=== PATIENT | female | born 1960 | race Caucasian/White ===

== ENCOUNTER 2019-12-17 17:18 | Inpatient (IN) | payer BC, OTHER ==
[2019-12-17] MEDS ORDERED: Sodium Chloride 0.9% 2.5 ML Syringe FLUSH PRN (17:40)
[2019-12-17] MEDS ORDERED: Sodium Chloride 0.9% 10 ML Syringe FLUSH PRN (17:40)
--- NOTE | 2019-12-17 17:44 | EDM.PDOC ---
<Vamsi Starks - Last Filed: 12/17/19 19:57> ED HPI GENERAL MEDICAL PROBLEM - General Chief Complaint: Skin Complaint Stated Complaint: ABCESS ON LEFT SIDE OF FACE Time Seen by Provider: 12/17/19 17:32 - History of Present Illness INITIAL COMMENTS - FREE TEXT/NARRATIVE: Signout received from Dr. Black at 7 PM. Patient seen and evaluated by me. Patient with significant redness and swelling to her left lateral jaw with induration. There is a small pustule identified at the angle of the mandible. Patient has no trismus, no change in voice, no stridor, no airway compromise. Patient reports that she identified swelling in that area several days ago and saw her doctor and started her on cefdinir. Patient reports that she is on day 3 of cefdinir with no improvement of the indurated area. Patient reports that she is actually felt that the area has gotten slightly bigger and more tender since the antibiotics were initiated. Patient has a slightly elevated WBC count. Patient's CT scan of her soft tissue neck reveals: 1. Inflammatory changes noted within the lower left parotid salivary gland. This continues slightly inferior to the left parotid gland. Low density is noted within the left parotid gland which does not represent actual abscess at this time but puts the patient at risk for future abscess. There is inflammatory thickening of the adjacent platysma muscle. Inflammatory change within the lower left parotid salivary gland which contains low-density areas. Inflammatory change can continues inferiorly causing thickening of the platysma muscle. Findings are most suggestive of parotiditis. Follow-up CT recommended in 4 weeks to make sure findings are resolving as patient is at risk for abscess development 2. Degenerative change within the spine. No additional abnormalities appreciated. Pustule to angle of mandible deroofed by 18-gauge needle and a small amount of purulent material was expressed. Culture obtained and sent for Gram stain and cultures. Blood cultures x2 obtained with lactic acid level. Patient started on normal saline x1 L. Patient will need to be started on broad-spectrum IV antibiotics for parotiditis as she has failed outpatient therapy. Patient be placed on vancomycin and Zosyn. Case has been discussed with Dr. Brownlee our hospitalist and he is agreed to assist this with inpatient level of care of this patient. - Related Data Allergies Allergy/AdvReac Type Severity Reaction Status Date / Time Latex, Natural Rubber Allergy Rash Verified 12/17/19 21:46 latex Allergy Rash Uncoded 12/17/19 21:46 Home Meds: Home Meds Cefdinir 1 cap PO BID 12/17/19 [History] Gabapentin [Neurontin] 600 mg PO BEDTIME 12/17/19 [History] Propranolol [Inderal] 40 mg PO BID 12/17/19 [History] Rosuvastatin [Crestor] 10 mg PO BEDTIME 12/17/19 [History] Departure - Departure Time of Disposition: 20:03 Disposition: Admitted As Inpatient 64 Condition: Good Clinical Impression: Parotiditis, Acute parotitis - Discharge Information <Riley Black - Last Filed: 12/18/19 19:16> ED HPI GENERAL MEDICAL PROBLEM - History of Present Illness INITIAL COMMENTS - FREE TEXT/NARRATIVE: The patient has a gradually progressive enlarging firm mass in the left side of the angle of her jaw outside of her oral cavity. The teeth are uninvolved the pharynx is uninvolved she has no trismus ptyalism or change in her voice. She has been on antibiotics for 2 days now since she saw about it. He continues to grow. It is now painful red and markedly enlarged. Day 3 of cefdinir History of present illness: [] Review of systems: As per history of present illness and below otherwise all systems reviewed and negative. Past medical history: As per history of present illness and as reviewed below otherwise noncontributory. Surgical history: As per history of present illness and as reviewed below otherwise noncontributo ry. Social history: No reported history of drug or alcohol abuse. Family history: As per history of present illness and as reviewed below otherwise noncontributory. Physical exam: Constitutional - well developed, well-nourished and in no acute distress HEENT -small size tender mass in the left face and neck starting at and below and inferior to the angle of the jaw. There is a small punctate area that appears that it may have drained some purulent material 1 time with the patient denies drainage. Otherwise normocephalic, no evidence of trauma - external nose and mouth normal - no mass in neck and no JVD - mucosae moist EYES - full EOM, PERRL, no icterus - no evidence of inflammation, injection, or drainage Respiratory - no respiratory distress, equal bilateral expansion, Musculoskeletal no gross deformity of long bones or joints - no tenderness, swelling or edema Neurologic - Alert and oriented times four - CN II-XII grossly intact - motor sensory and coordination symmetrically normal Psychiatric - appropriate mood and affect with normal thought content Hematologic - No petechiae or purpura - mucosa appropriate color and sclera not pale - normal nail bed color and refill Integument - no rash or evidence of trauma - normal turgor Diagnostics: [] Therapeutics: [] Impression: [] Plan: [] Definitive disposition and diagnosis as appropriate pending reevaluation and review of above. abscess to left jaw area Pain Score (Numeric/FACES): 3 Past Medical History Neurological History: Reports: Other (See Below) Other Neuro History: Benign Essential Tremors - Infectious Disease History Infectious Disease History: Reports: Chicken Pox, Mumps - Past Surgical History Female Surgical History: Reports: Section Social & Family History - Family History Family Medical History: Noncontributory - Tobacco Use Smoking Status *Q: Never Smoker - Recreational Drug Use Recreational Drug Use: No ED ROS GENERAL - Review of Systems Review Of Systems: Comprehensive ROS is negative, except as noted in HPI. ED EXAM, SKIN/RASH Exam: See Below Text/Narrative:: My physical exam is in the HPI Course - Vital Signs Text/Narrative:: At the end of my shift the patient had not completed her imaging. I was not sure whether she had an infection of a solid tumor or she had a soft tissue infection only. I turned the case over to Dr. Sommer for disposition. Last Recorded V/S: Last Vital Signs Temp 98.2 F 12/18/19 15:00 Pulse 68 12/18/19 15:00 Resp 16 12/18/19 15:00 BP 124/56 L 12/18/19 15:00 Pulse Ox 97 12/18/19 15:00 - Orders/Labs/Meds Orders: Active Orders 24 hr Category Date Time Status Patient Status [ADT] Routine ADT 12/17/19 20:06 Active Medication Orders Acetaminophen (Tylenol) 650 mg PO Q4H PRN PRN Reason: Pain (Mild 1-3)/fever Gabapentin (Neurontin) 600 mg PO BEDTIME [facility] Last Admin: 12/17/19 22:58 Dose: 600 mg Documented by: APOLEVA Piperacillin Sod/Tazobactam (Sod 3.375 gm/ Sodium Chloride) 50 mls @ 100 mls/hr IV Q6H [facility] Last Admin: 12/18/19 14:54 Dose: 100 mls/hr Documented by: Infusion: 12/18/19 08:48 Dose: 100 mls/hr Documented by: Admin: 12/18/19 08:18 Dose: 100 mls/hr Documented by: Infusion: 12/18/19 01:59 Dose: 100 mls/hr Documented by: Admin: 12/18/19 01:29 Dose: 100 mls/hr Documented by: BEBETO Vancomycin HCl 1.5 gm/ Premix 300 mls @ 300 mls/hr IV Q12H [facility] Last Admin: 12/18/19 09:04 Dose: 300 mls/hr Documented by: KRISTIAN Ibuprofen (Motrin) 400 mg PO Q6H PRN PRN Reason: Pain (mild 1-3) Oxycodone HCl (Oxycodone) 5 mg PO Q4H PRN PRN Reason: Pain (moderate 4-6) Pantoprazole Sodium (Protonix) 40 mg PO DAILY [facility] Last Admin: 12/18/19 11:28 Dose: 40 mg Documented by: GENIE Cosigned by: KRISTIAN Propranolol HCl (Inderal) 40 mg PO BID [facility] Last Admin: 12/18/19 08:19 Dose: 40 mg Documented by: KRISTIAN Rosuvastatin Calcium (Crestor) 10 mg PO BEDTIME [facility] Sodium Chloride (Saline Flush) 10 ml FLUSH ASDIRECTED PRN PRN Reason: Keep Vein Open Last Admin: 12/17/19 18:22 Dose: 10 ml Documented by: ULISES Sodium Chloride (Saline Flush) 2.5 ml FLUSH ASDIRECTED PRN PRN Reason: Keep Vein Open Last Admin: 12/17/19 18:22 Dose: 2.5 ml Documented by: ULISES Vancomycin HCl (Pharmacy To Dose - Vancomycin) 1 dose .XX ASDIRECTED [facility] Labs: Laboratory Tests 12/17/19 12/17/19 12/17/19 Range/Units 18:15 18:15 19:55 WBC 11.68 H (4.0-11.0) K/uL RBC 4.27 L (4.30-5.90) M/uL Hgb 12.1 (12.0-16.0) g/dL Hct 39.2 (36.0-46.0) % MCV 91.8 (80.0-98.0) fL MCH 28.3 (27.0-32.0) pg MCHC 30.9 L (31.0-37.0) g/dL RDW Std Deviation 52.2 (28.0-62.0) fl RDW Coeff of Gaurav 15 (11.0-15.0) % Plt Count 288 (150-400) K/uL MPV 9.00 (7.40-12.00) fL Neut % (Auto) 68.3 (48.0-80.0) % Lymph % (Auto) 23.6 (16.0-40.0) % [place] % (Auto) 6.3 (0.0-15.0) % Eos % (Auto) 1.6 (0.0-7.0) % Baso % (Auto) 0.2 (0.0-1.5) % Neut # (Auto) 8.0 H (1.4-5.7) K/uL Lymph # (Auto) 2.8 H (0.6-2.4) K/uL [place] # (Auto) 0.7 (0.0-0.8) K/uL Eos # (Auto) 0.2 (0.0-0.7) K/uL Baso # (Auto) 0.0 (0.0-0.1) K/uL Nucleated RBC % 0.0 /100WBC Nucleated RBCs # 0 K/uL Sodium 138 (136-145) mmol/L Potassium 3.9 (3.5-5.1) mmol/L Chloride 102 (98-107) mmol/L Carbon Dioxide 23.1 (21.0-32.0) mmol/L BUN 18 (7.0-18.0) mg/dL Creatinine 0.8 (0.6-1.0) mg/dL Est Cr Clr Drug Dosing 58.41 mL/min Estimated GFR (MDRD) > 60.0 ml/min Glucose 77 (74-106) mg/dL Calcium 8.4 L (8.5-10.1) mg/dL Total Bilirubin 0.3 (0.2-1.0) mg/dL AST 23 (15-37) IU/L ALT 32 (14-63) IU/L Alkaline Phosphatase 80 (46-116) U/L Total Protein 7.7 (6.4-8.2) g/dL Albumin 3.1 L (3.4-5.0) g/dL Globulin 4.6 H (2.6-4.0) g/dL Albumin/Globulin Ratio 0.7 L (0.9-1.6) COVID-19 (RACHEAL) NEGATIVE (NEGATIVE) Meds: Medications Generic Name Dose Route Start Last Admin Trade Name Freq PRN Reason Stop Dose Admin Acetaminophen 650 mg 12/17/19 22:38 Tylenol PO Q4H PRN Pain (Mild 1-3)/fever Gabapentin 600 mg 12/17/19 21:00 12/17/19 22:58 Neurontin PO 600 mg BEDTIME MEI Administration Piperacillin Sod/Tazobactam 50 mls @ 100 mls/hr 12/18/19 02:00 12/18/19 14:54 Sod 3.375 gm/ Sodium Chloride IV 100 mls/hr Q6H [facility] Administration Vancomycin HCl 1.5 gm/ Premix 300 mls @ 300 mls/hr 12/18/19 09:00 12/18/19 09:04 IV 300 mls/hr Q12H [facility] Administration Ibuprofen 400 mg 12/17/19 22:38 Motrin PO Q6H PRN Pain (mild 1-3) Oxycodone HCl 5 mg 12/17/19 22:38 Oxycodone PO Q4H PRN Pain (moderate 4-6) Pantoprazole Sodium 40 mg 12/18/19 11:00 12/18/19 11:28 Protonix PO 40 mg DAILY MEI Administration Propranolol HCl 40 mg 12/18/19 09:00 12/18/19 08:19 Inderal PO 40 mg BID MEI Administration Rosuvastatin Calcium 10 mg 12/18/19 21:00 Crestor PO BEDTIME MEI Sodium Chloride 10 ml 12/17/19 17:40 12/17/19 18:22 Saline Flush FLUSH 10 ml ASDIRECTED PRN Administration Keep Vein Open Sodium Chloride 2.5 ml 12/17/19 17:40 12/17/19 18:22 Saline Flush FLUSH 2.5 ml ASDIRECTED PRN Administration Keep Vein Open Vancomycin HCl 1 dose 12/17/19 22:45 Pharmacy To Dose - Vancomycin .XX ASDIRECTED MEI Discontinued Medications Generic Name Dose Route Start Last Admin Trade Name Freq PRN Reason Stop Dose Admin Vancomycin HCl 1.5 gm/ Premix 300 mls @ 300 mls/hr 12/17/19 19:50 12/17/19 21:49 IV 12/17/19 19:51 200 mls/hr ONETIME ONE Administration Piperacillin Sod/Tazobactam 50 mls @ 100 mls/hr 12/17/19 19:51 12/17/19 21:21 Sod 3.375 gm/ Sodium Chloride IV 12/17/19 20:20 100 mls/hr ONETIME ONE Administration Vancomycin HCl 1.5 gm/ Sodium 500 mls @ 333.333 mls/hr 12/18/19 05:00 Chloride IV Q12H MEI Iopamidol 80 ml 12/17/19 19:15 12/17/19 19:15 Isovue-370 (76%) IVPUSH 12/17/19 19:16 80 ml ONETIME STA Administration Sepsis Event Note (ED) - Evaluation Sepsis Screening Result: No Definite Risk
[2019-12-17 18:53] LABS: BLOOD UREA NITROGEN,BUN 18 mg/dL (7.0-18.0); CARBON DIOXIDE,CO2 23.1 mmol/L (21.0-32.0); CHLORIDE,CL 102 mmol/L (98-107); GLUCOSE RANDOM 77 mg/dL (74-106); POTASSIUM,K 3.9 mmol/L (3.5-5.1); SODIUM,NA 138 mmol/L (136-145)
[2019-12-17] MEDS ORDERED: Iopamidol 755 Mg/ML 100 ML Bottle IVPUSH STA (19:15)
--- NOTE | 2019-12-17 19:30 | CT ---
CT neck Technique: Multiple axial sections were obtained from above the external auditory canal inferiorly to the lung apices. Intravenous contrast was utilized. Reconstructed coronal and sagittal images were obtained. Findings: Inflammatory change is noted within the lower left parotid salivary gland. This continues slightly inferior to the left parotid gland. Low density is noted within the left parotid gland which does not represent actual abscess at this time but puts the patient at risk for future abscess. There is inflammatory thickening of the adjacent platysma muscle. Right parotid salivary gland is normal. Submandibular salivary glands are normal. Visualized lung apices are clear. Thyroid gland shows no discrete nodule. No adenopathy is seen within the neck. No prevertebral soft tissue swelling is noted. Degenerative change is scattered within the spine. Visualized paranasal sinuses show nothing acute. Impression: 1. Inflammatory change within the lower left parotid salivary gland which contains low density areas. Inflammatory change continues inferiorly causing thickening of the platysma muscle. Findings are most suggestive of parotiditis. Follow-up CT recommended in 4 weeks to make sure findings are resolving as patient is at risk for abscess development. 2. Degenerative change within the spine. 3. No additional abnormality is appreciated. Diagnostic code #5 This report was dictated in MDT
[2019-12-17] MEDS ORDERED: Piperacillin/Tazobactam 3.375 GM in Sodium Chloride 0.9% 50 ML IV ONE (19:51)
--- NOTE | 2019-12-17 22:35 | PCM.HP.2 ---
H&P History of Present Illness - General Date of Service: 12/17/19 Admit Problem/Dx: Admission Diagnosis/Problem Admission Diagnosis/Problem Parotitis - History of Present Illness Initial Comments - Free Text/Narative: 59 yo female who presents with enlarging mass on left angle of jaw. She was given Cefdiner two days ago for parotidis with no improvement. Patient has been taking ibuprofen and acetaminophen for the pain. She denies any fevers or chills. She has no difficulty swallowing. Patient reports no drainage. In the ED she had a CT scan of neck which suggested parotidis with no evidence of abscess. abscess to left jaw area Pain Score (Numeric/FACES): 3 - Related Data Allergies/Adverse Reactions: Allergies Allergy/AdvReac Type Severity Reaction Status Date / Time Latex, Natural Rubber Allergy Rash Verified 12/17/19 21:46 latex Allergy Rash Uncoded 12/17/19 21:46 Home Medications: Home Meds Cefdinir 1 cap PO BID 12/17/19 [History] Gabapentin [Neurontin] 600 mg PO BEDTIME 12/17/19 [History] Propranolol [Inderal] 40 mg PO BID 12/17/19 [History] Rosuvastatin [Crestor] 10 mg PO BEDTIME 12/17/19 [History] Past Medical History Cardiovascular History: Reports: High Cholesterol [employer] History: Reports: Musculoskeletal History: Reports: Other (See Below) Other Musculoskeletal History: benign essential tremors- taking gabapentin and Inderal Neurological History: Reports: Other (See Below) Other Neuro History: Benign Essential Tremors - Infectious Disease History Infectious Disease History: Reports: Chicken Pox, Mumps - Past Surgical History Cardiovascular Surgical History: Reports: None Female Surgical History: Reports: Section Social & Family History - Family History Family Medical History: Noncontributory - Tobacco Use Smoking Status *Q: Never Smoker Second Hand Smoke Exposure: No - Caffeine Use Caffeine Use: Reports: Tea - Recreational Drug Use Recreational Drug Use: No H&P Review of Systems - Review of Systems: Review Of Systems: Comprehensive ROS is negative, except as noted in HPI. Exam - Exam Exam: See Below - Vital Signs Vital Signs: Last Vital Signs Temp 36.5 C 12/17/19 17:26 Pulse 84 12/17/19 20:57 Resp 16 12/17/19 20:57 BP 150/67 H 12/17/19 20:57 Pulse Ox 97 12/17/19 20:57 Weight: 93.485 kg - Exam General: Alert, Oriented HEENT: Conjunctiva Clear, EACs Clear, EOMI, Mucosa Moist & [place], Posterior Pharynx Clear, Other (3-4 cm area of induration and erythema around the left jaw angle, no are of fluctuance or drainage) Neck: Supple Lungs: Clear to Auscultation, Normal Respiratory Effort Cardiovascular: Regular Rate, Regular Rhythm GI/Abdominal Exam: Normal Bowel Sounds, Soft, Non-Tender Extremities: Non-Tender, No Pedal Edema Skin: Warm, Dry, Intact Neurological: No: Focal Deficit - Patient Data Lab Results Last 24 hrs: Laboratory Results - last 24 hr 12/17/19 12/17/19 12/17/19 Range/Units 18:15 18:15 19:55 WBC 11.68 H (4.0-11.0) K/uL RBC 4.27 L (4.30-5.90) M/uL Hgb 12.1 (12.0-16.0) g/dL Hct 39.2 (36.0-46.0) % MCV 91.8 (80.0-98.0) fL MCH 28.3 (27.0-32.0) pg MCHC 30.9 L (31.0-37.0) g/dL RDW Std Deviation 52.2 (28.0-62.0) fl RDW Coeff of Gaurav 15 (11.0-15.0) % Plt Count 288 (150-400) K/uL MPV 9.00 (7.40-12.00) fL Neut % (Auto) 68.3 (48.0-80.0) % Lymph % (Auto) 23.6 (16.0-40.0) % [place] % (Auto) 6.3 (0.0-15.0) % Eos % (Auto) 1.6 (0.0-7.0) % Baso % (Auto) 0.2 (0.0-1.5) % Neut # (Auto) 8.0 H (1.4-5.7) K/uL Lymph # (Auto) 2.8 H (0.6-2.4) K/uL [place] # (Auto) 0.7 (0.0-0.8) K/uL Eos # (Auto) 0.2 (0.0-0.7) K/uL Baso # (Auto) 0.0 (0.0-0.1) K/uL Nucleated RBC % 0.0 /100WBC Nucleated RBCs # 0 K/uL Sodium 138 (136-145) mmol/L Potassium 3.9 (3.5-5.1) mmol/L Chloride 102 (98-107) mmol/L Carbon Dioxide 23.1 (21.0-32.0) mmol/L BUN 18 (7.0-18.0) mg/dL Creatinine 0.8 (0.6-1.0) mg/dL Est Cr Clr Drug Dosing 58.41 mL/min Estimated GFR (MDRD) > 60.0 ml/min Glucose 77 (74-106) mg/dL Calcium 8.4 L (8.5-10.1) mg/dL Total Bilirubin 0.3 (0.2-1.0) mg/dL AST 23 (15-37) IU/L ALT 32 (14-63) IU/L Alkaline Phosphatase 80 (46-116) U/L Total Protein 7.7 (6.4-8.2) g/dL Albumin 3.1 L (3.4-5.0) g/dL Globulin 4.6 H (2.6-4.0) g/dL Albumin/Globulin Ratio 0.7 L (0.9-1.6) COVID-19 (RACHEAL) NEGATIVE (NEGATIVE) Result Diagrams: 12/19/19 05:28 12/19/19 05:28 Sepsis Event Note - Evaluation Sepsis Screening Result: No Definite Risk - Focused Exam Vital Signs: Vital Signs Temp Pulse Resp BP Pulse Ox 12/17/19 20:57 84 16 150/67 H 97 12/17/19 17:26 36.5 C 74 20 96 Problem List Initiated/Reviewed/Updated: Yes Orders Last 24hrs: Active Orders 24 hr Category Date Time Status Patient Status [ADT] Routine ADT 12/17/19 20:06 Active CULTURE WOUND [RM] Routine Lab 12/17/19 20:00 Received Sodium Chloride 0.9% [Saline Flush] Med 12/17/19 17:40 Active 10 ml FLUSH ASDIRECTED PRN Sodium Chloride 0.9% [Saline Flush] Med 12/17/19 17:40 Active 2.5 ml FLUSH ASDIRECTED PRN Saline Lock Insert [OM.PC] Stat Oth 12/17/19 17:41 Ordered Medication Orders Sodium Chloride (Saline Flush) 10 ml FLUSH ASDIRECTED PRN PRN Reason: Keep Vein Open Last Admin: 12/17/19 18:22 Dose: 10 ml Documented by: [id number] Sodium Chloride (Saline Flush) 2.5 ml FLUSH ASDIRECTED PRN PRN Reason: Keep Vein Open Last Admin: 12/17/19 18:22 Dose: 2.5 ml Documented by: [id number] Assessment/Plan Comment:: 49 yo female admitted for parotiditis that failed outpatient management. Will treat with broad spectrum IV antibiotics.
[2019-12-17] MEDS ORDERED: oxyCODONE 5 MG Tab PO PRN (22:38)
[2019-12-17] MEDS ORDERED: Ibuprofen 400 MG Tab PO PRN (22:38)
[2019-12-17] MEDS ORDERED: Acetaminophen 325 MG Tab PO PRN (22:38)
[2019-12-17] MEDS: Gabapentin 300 MG Cap PO SCH (22:58)
[2019-12-18] MEDS: Piperacillin/Tazobactam 3.375 GM in Sodium Chloride 0.9% 50 ML IV SCH ×4 (01:29→20:36)
[2019-12-18] MEDS ORDERED: Vancomycin 1.5 GM in Sodium Chloride 0.9% 500 ML IV SCH (05:00)
[2019-12-18 05:25] LABS: BLOOD UREA NITROGEN,BUN 14 mg/dL (7.0-18.0); CHLORIDE,CL 104 mmol/L (98-107); GLUCOSE RANDOM 76 mg/dL (74-106); POTASSIUM,K 3.9 mmol/L (3.5-5.1); SODIUM,NA 139 mmol/L (136-145)
--- NOTE | 2019-12-18 08:00 | PCM.PN ---
- General Info Date of Service: 12/18/19 Subjective Update: Bedside: no acute complaints. Mentions pain only with palpation; otherwise no acute distress Functional Status: Reports: Pain Controlled - Review of Systems General: Reports: No Symptoms HEENT: Reports: No Symptoms Pulmonary: Reports: No Symptoms Cardiovascular: Reports: No Symptoms Gastrointestinal: Reports: No Symptoms Genitourinary: Reports: No Symptoms Musculoskeletal: Reports: No Symptoms Neurological: Reports: No Symptoms Psychiatric: Reports: No Symptoms - Patient Data Vitals - Most Recent: Last Vital Signs Temp 98.5 F 12/18/19 07:41 Pulse 84 12/18/19 07:41 Resp 20 12/18/19 07:41 BP 117/62 12/18/19 07:41 Pulse Ox 96 12/18/19 07:41 Weight - Most Recent: 93.485 kg I&O - Last 24 Hours: Intake & Output 12/17/19 12/18/19 12/18/19 22:59 06:59 14:59 Intake Total 50 600 Output Total 1050 Balance 50 -450 Lab Results Last 24 Hours: Laboratory Results - last 24 hr 12/17/19 12/17/19 12/17/19 Range/Units 18:15 18:15 19:55 WBC 11.68 H (4.0-11.0) K/uL RBC 4.27 L (4.30-5.90) M/uL Hgb 12.1 (12.0-16.0) g/dL Hct 39.2 (36.0-46.0) % MCV 91.8 (80.0-98.0) fL MCH 28.3 (27.0-32.0) pg MCHC 30.9 L (31.0-37.0) g/dL RDW Std Deviation 52.2 (28.0-62.0) fl RDW Coeff of Gaurav 15 (11.0-15.0) % Plt Count 288 (150-400) K/uL MPV 9.00 (7.40-12.00) fL Neut % (Auto) 68.3 (48.0-80.0) % Lymph % (Auto) 23.6 (16.0-40.0) % [place] % (Auto) 6.3 (0.0-15.0) % Eos % (Auto) 1.6 (0.0-7.0) % Baso % (Auto) 0.2 (0.0-1.5) % Neut # (Auto) 8.0 H (1.4-5.7) K/uL Lymph # (Auto) 2.8 H (0.6-2.4) K/uL [place] # (Auto) 0.7 (0.0-0.8) K/uL Eos # (Auto) 0.2 (0.0-0.7) K/uL Baso # (Auto) 0.0 (0.0-0.1) K/uL Nucleated RBC % 0.0 /100WBC Nucleated RBCs # 0 K/uL Sodium 138 (136-145) mmol/L Potassium 3.9 (3.5-5.1) mmol/L Chloride 102 (98-107) mmol/L Carbon Dioxide 23.1 (21.0-32.0) mmol/L BUN 18 (7.0-18.0) mg/dL Creatinine 0.8 (0.6-1.0) mg/dL Est Cr Clr Drug Dosing 58.41 mL/min Estimated GFR (MDRD) > 60.0 ml/min Glucose 77 (74-106) mg/dL Calcium 8.4 L (8.5-10.1) mg/dL Total Bilirubin 0.3 (0.2-1.0) mg/dL AST 23 (15-37) IU/L ALT 32 (14-63) IU/L Alkaline Phosphatase 80 (46-116) U/L Total Protein 7.7 (6.4-8.2) g/dL Albumin 3.1 L (3.4-5.0) g/dL Globulin 4.6 H (2.6-4.0) g/dL Albumin/Globulin Ratio 0.7 L (0.9-1.6) COVID-19 (RACHEAL) NEGATIVE (NEGATIVE) 12/18/19 12/18/19 Range/Units 04:55 04:55 WBC 8.51 (4.0-11.0) K/uL RBC 4.26 L (4.30-5.90) M/uL Hgb 12.2 (12.0-16.0) g/dL Hct 39.2 (36.0-46.0) % MCV 92.0 (80.0-98.0) fL MCH 28.6 (27.0-32.0) pg MCHC 31.1 (31.0-37.0) g/dL RDW Std Deviation 51.7 (28.0-62.0) fl RDW Coeff of Gaurav 15 (11.0-15.0) % Plt Count 263 (150-400) K/uL MPV 8.60 (7.40-12.00) fL Neut % (Auto) 63.5 (48.0-80.0) % Lymph % (Auto) 26.4 (16.0-40.0) % [place] % (Auto) 7.2 (0.0-15.0) % Eos % (Auto) 2.4 (0.0-7.0) % Baso % (Auto) 0.5 (0.0-1.5) % Neut # (Auto) 5.4 (1.4-5.7) K/uL Lymph # (Auto) 2.3 (0.6-2.4) K/uL [place] # (Auto) 0.6 (0.0-0.8) K/uL Eos # (Auto) 0.2 (0.0-0.7) K/uL Baso # (Auto) 0.0 (0.0-0.1) K/uL Nucleated RBC % 0.0 /100WBC Nucleated RBCs # 0 K/uL Sodium 139 (136-145) mmol/L Potassium 3.9 (3.5-5.1) mmol/L Chloride 104 (98-107) mmol/L Carbon Dioxide 22.0 (21.0-32.0) mmol/L BUN 14 (7.0-18.0) mg/dL Creatinine 0.7 (0.6-1.0) mg/dL Est Cr Clr Drug Dosing 66.75 mL/min Estimated GFR (MDRD) > 60.0 ml/min Glucose 76 (74-106) mg/dL Calcium 8.0 L (8.5-10.1) mg/dL Total Bilirubin (0.2-1.0) mg/dL AST (15-37) IU/L ALT (14-63) IU/L Alkaline Phosphatase (46-116) U/L Total Protein (6.4-8.2) g/dL Albumin (3.4-5.0) g/dL Globulin (2.6-4.0) g/dL Albumin/Globulin Ratio (0.9-1.6) COVID-19 (RACHEAL) (NEGATIVE) Kavon Results Last 24 Hours: Microbiology 12/17/19 20:00 Wound Culture - Preliminary Face - Cheek, Left Med Orders - Current: Current Medications Acetaminophen (Tylenol) 650 mg PO Q4H PRN PRN Reason: Pain (Mild 1-3)/fever Gabapentin (Neurontin) 600 mg PO BEDTIME [facility] Last Admin: 12/17/19 22:58 Dose: 600 mg Documented by: Piperacillin Sod/Tazobactam (Sod 3.375 gm/ Sodium Chloride) 50 mls @ 100 mls/hr IV Q6H [facility] Last Admin: 12/18/19 01:29 Dose: 100 mls/hr Documented by: Vancomycin HCl 1.5 gm/ Premix 300 mls @ 300 mls/hr IV Q12H [facility] Ibuprofen (Motrin) 400 mg PO Q6H PRN PRN Reason: Pain (mild 1-3) Oxycodone HCl (Oxycodone) 5 mg PO Q4H PRN PRN Reason: Pain (moderate 4-6) Propranolol HCl (Inderal) 40 mg PO BID [facility] Rosuvastatin Calcium (Crestor) 10 mg PO BEDTIME [facility] Sodium Chloride (Saline Flush) 10 ml FLUSH ASDIRECTED PRN PRN Reason: Keep Vein Open Last Admin: 12/17/19 18:22 Dose: 10 ml Documented by: Sodium Chloride (Saline Flush) 2.5 ml FLUSH ASDIRECTED PRN PRN Reason: Keep Vein Open Last Admin: 12/17/19 18:22 Dose: 2.5 ml Documented by: Vancomycin HCl (Pharmacy To Dose - Vancomycin) 1 dose .XX ASDIRECTED [facility] Discontinued Medications Vancomycin HCl 1.5 gm/ Premix 300 mls @ 300 mls/hr IV ONETIME ONE Stop: 12/17/19 19:51 Last Admin: 12/17/19 21:49 Dose: 200 mls/hr Documented by: Piperacillin Sod/Tazobactam (Sod 3.375 gm/ Sodium Chloride) 50 mls @ 100 mls/hr IV ONETIME ONE Stop: 12/17/19 20:20 Last Admin: 12/17/19 21:21 Dose: 100 mls/hr Documented by: Vancomycin HCl 1.5 gm/ Sodium (Chloride) 500 mls @ 333.333 mls/hr IV Q12H [facility] Iopamidol (Isovue-370 (76%)) 80 ml IVPUSH ONETIME STA Stop: 12/17/19 19:16 Last Admin: 12/17/19 19:15 Dose: 80 ml Documented by: - Exam Quality Assessment: No: Supplemental Oxygen General: Alert, Oriented, Cooperative, No Acute Distress HEENT: EOMI Neck: Supple, Other (tender mass/lesion noted over angle of ajw on left extending inferiorly just below angle of jaw, airway patent, CN intact, no trismus noted. no trgal tenderness. Some mild purulent discharge noted when removing band-aid; +tenderness; no fluctuance apprecaited ) Lungs: Clear to Auscultation, Normal Respiratory Effort Cardiovascular: Regular Rate, Regular Rhythm GI/Abdominal Exam: Soft, Non-Tender Back Exam: Normal Inspection Extremities: Normal Inspection, Normal Range of Motion Wound/Incisions: Healing Well Neurological: Normal Speech, Other (pre existing essential tremor ) Psy/Mental Status: Alert, Normal Affect, Normal Mood Sepsis Event Note - Evaluation Sepsis Screening Result: No Definite Risk - Focused Exam Vital Signs: Vital Signs Temp Pulse Resp BP BP Pulse Ox 12/18/19 07:41 98.5 F 84 20 117/62 96 12/18/19 04:00 98.4 F 87 18 125/59 L 95 12/18/19 00:00 99.3 F 81 18 129/61 95 12/17/19 21:35 99.1 F 83 20 141/69 H 97 12/17/19 20:57 84 16 150/67 H 97 - Problem List Review Problem List Initiated/Reviewed/Updated: Yes - Plan Plan:: Assessment: 1. L parotiditis that failed outpatient management. 2. PMH: essential tremor, HLD Plan Continue vancomycin and Zosyn. Will order a US to evaluate for any abscess formation Currently afebrile , airway patent, no CN deficits and in no acute distress/pain Continue to monitor for response to therapy; if abscess noted will need higher level of care pt understood plan. Wound cx pending
[2019-12-18] MEDS: Propranolol 20 MG Tab PO SCH ×2 (08:19→20:45)
[2019-12-18] MEDS: Pantoprazole 40 MG Tab.CR PO SCH (11:28)
--- NOTE | 2019-12-18 12:19 | US ---
Left parotid gland ultrasound: Multiple real-time images of the left parotid gland were obtained. Comparison: Prior CT neck study of 12/17/19. Hypoechoic areas of edema are noted within the left parotid gland. No drainable abscess is seen at this time. Left parotid gland is enlarged. Impression: 1. Findings as noted above. Diagnostic code #3 This report was dictated in MDT
[2019-12-18] MEDS: Rosuvastatin 10 MG Tab PO SCH (20:44)
[2019-12-18] MEDS: Gabapentin 300 MG Cap PO SCH (20:44)
[2019-12-19] MEDS: Piperacillin/Tazobactam 3.375 GM in Sodium Chloride 0.9% 50 ML IV SCH ×4 (01:00→20:42)
[2019-12-19] MEDS: Propranolol 20 MG Tab PO SCH ×2 (08:39→20:41)
[2019-12-19] MEDS: Pantoprazole 40 MG Tab.CR PO SCH (08:40)
--- NOTE | 2019-12-19 11:20 | PCM.PN ---
- General Info Date of Service: 12/19/19 - Review of Systems Systems Review Comment:: denies any fevers, reports mass on jaw feels like it has shrunk in size - Patient Data Vitals - Most Recent: Last Vital Signs Temp 37.0 C 12/19/19 07:25 Pulse 71 12/19/19 07:25 Resp 16 12/19/19 07:25 BP 133/61 12/19/19 07:25 Pulse Ox 95 12/19/19 07:25 Weight - Most Recent: 93.485 kg I&O - Last 24 Hours: Intake & Output 12/18/19 12/19/19 12/19/19 22:59 06:59 14:59 Intake Total 550 500 Output Total 850 1200 Balance -300 -700 Lab Results Last 24 Hours: Laboratory Results - last 24 hr 12/19/19 12/19/19 Range/Units 05:28 05:28 WBC 7.19 (4.0-11.0) K/uL RBC 3.97 L (4.30-5.90) M/uL Hgb 11.5 L (12.0-16.0) g/dL Hct 36.9 (36.0-46.0) % MCV 92.9 (80.0-98.0) fL MCH 29.0 (27.0-32.0) pg MCHC 31.2 (31.0-37.0) g/dL RDW Std Deviation 53.0 (28.0-62.0) fl RDW Coeff of Gaurav 16 H (11.0-15.0) % Plt Count 303 (150-400) K/uL MPV 8.80 (7.40-12.00) fL Neut % (Auto) 54.3 (48.0-80.0) % Lymph % (Auto) 34.2 (16.0-40.0) % [place] % (Auto) 8.1 (0.0-15.0) % Eos % (Auto) 3.1 (0.0-7.0) % Baso % (Auto) 0.3 (0.0-1.5) % Neut # (Auto) 3.9 (1.4-5.7) K/uL Lymph # (Auto) 2.5 H (0.6-2.4) K/uL [place] # (Auto) 0.6 (0.0-0.8) K/uL Eos # (Auto) 0.2 (0.0-0.7) K/uL Baso # (Auto) 0.0 (0.0-0.1) K/uL Nucleated RBC % 0.0 /100WBC Nucleated RBCs # 0 K/uL Sodium 141 (136-145) mmol/L Potassium 4.0 (3.5-5.1) mmol/L Chloride 107 (98-107) mmol/L Carbon Dioxide 23.0 (21.0-32.0) mmol/L BUN 17 (7.0-18.0) mg/dL Creatinine 1.0 (0.6-1.0) mg/dL Est Cr Clr Drug Dosing 46.72 mL/min Estimated GFR (MDRD) 56.4 ml/min Glucose 97 (74-106) mg/dL Calcium 8.4 L (8.5-10.1) mg/dL Kavon Results Last 24 Hours: Microbiology 12/17/19 20:00 Wound Culture - Preliminary Face - Cheek, Left NO GROWTH AFTER 1 DAY Med Orders - Current: Current Medications Acetaminophen (Tylenol) 650 mg PO Q4H PRN PRN Reason: Pain (Mild 1-3)/fever Gabapentin (Neurontin) 600 mg PO BEDTIME [facility] Last Admin: 12/18/19 20:44 Dose: 600 mg Documented by: Piperacillin Sod/Tazobactam (Sod 3.375 gm/ Sodium Chloride) 50 mls @ 100 mls/hr IV Q6H [facility] Last Admin: 12/19/19 08:39 Dose: 100 mls/hr Documented by: Vancomycin HCl 1.5 gm/ Premix 300 mls @ 300 mls/hr IV Q12H [facility] Last Admin: 12/18/19 21:15 Dose: 300 mls/hr Documented by: Ibuprofen (Motrin) 400 mg PO Q6H PRN PRN Reason: Pain (mild 1-3) Oxycodone HCl (Oxycodone) 5 mg PO Q4H PRN PRN Reason: Pain (moderate 4-6) Pantoprazole Sodium (Protonix) 40 mg PO DAILY [facility] Last Admin: 12/19/19 08:40 Dose: 40 mg Documented by: Propranolol HCl (Inderal) 40 mg PO BID [facility] Last Admin: 12/19/19 08:39 Dose: 40 mg Documented by: Rosuvastatin Calcium (Crestor) 10 mg PO BEDTIME [facility] Last Admin: 12/18/19 20:44 Dose: 10 mg Documented by: Sodium Chloride (Saline Flush) 10 ml FLUSH ASDIRECTED PRN PRN Reason: Keep Vein Open Last Admin: 12/17/19 18:22 Dose: 10 ml Documented by: Sodium Chloride (Saline Flush) 2.5 ml FLUSH ASDIRECTED PRN PRN Reason: Keep Vein Open Last Admin: 12/17/19 18:22 Dose: 2.5 ml Documented by: Vancomycin HCl (Pharmacy To Dose - Vancomycin) 1 dose .XX ASDIRECTED [facility] Discontinued Medications Vancomycin HCl 1.5 gm/ Premix 300 mls @ 300 mls/hr IV ONETIME ONE Stop: 12/17/19 19:51 Last Admin: 12/17/19 21:49 Dose: 200 mls/hr Documented by: Piperacillin Sod/Tazobactam (Sod 3.375 gm/ Sodium Chloride) 50 mls @ 100 mls/hr IV ONETIME ONE Stop: 12/17/19 20:20 Last Admin: 12/17/19 21:21 Dose: 100 mls/hr Documented by: Vancomycin HCl 1.5 gm/ Sodium (Chloride) 500 mls @ 333.333 mls/hr IV Q12H [facility] Iopamidol (Isovue-370 (76%)) 80 ml IVPUSH ONETIME STA Stop: 12/17/19 19:16 Last Admin: 12/17/19 19:15 Dose: 80 ml Documented by: - Exam General: Alert, Oriented Neck: Other (mild improvement in edema and induration of left jaw angle cellulitis, no purulent drainage noted, some weaping ofserousanginous fluid) Lungs: Clear to Auscultation, Normal Respiratory Effort Cardiovascular: Regular Rate, Regular Rhythm GI/Abdominal Exam: Soft, Non-Tender Extremities: Non-Tender, No Pedal Edema Neurological: No New Focal Deficit Sepsis Event Note - Evaluation Sepsis Screening Result: No Definite Risk - Focused Exam Vital Signs: Vital Signs Temp Pulse Resp BP Pulse Ox 12/19/19 07:25 37.0 C 71 16 133/61 95 12/19/19 05:00 36.7 C 63 20 111/43 L 94 L 12/19/19 00:00 36.6 C 69 18 100/63 95 - Problem List Review Problem List Initiated/Reviewed/Updated: Yes - My Orders Last 24 Hours: My Active Orders 12/18/19 21:00 Rosuvastatin [Crestor] 10 mg PO BEDTIME - Plan Plan:: 59 yo female admitted for failure of outpatient management of left parotiditis. We will continue Vancomycin and Zosyn.
[2019-12-19] MEDS: Gabapentin 300 MG Cap PO SCH (20:41)
[2019-12-19] MEDS: Rosuvastatin 10 MG Tab PO SCH (20:41)
[2019-12-20] MEDS: Piperacillin/Tazobactam 3.375 GM in Sodium Chloride 0.9% 50 ML IV SCH ×4 (02:41→20:38)
[2019-12-20 07:09] LABS: CARBON DIOXIDE,CO2 23.6 mmol/L (21.0-32.0)
[2019-12-20] MEDS: Pantoprazole 40 MG Tab.CR PO SCH (08:45)
[2019-12-20] MEDS: Propranolol 20 MG Tab PO SCH ×2 (08:45→20:38)
--- NOTE | 2019-12-20 11:17 | PCM.PN ---
- General Info Date of Service: 12/20/19 - Review of Systems Systems Review Comment:: patient feels left jaw cellulitis is improving. less firm and red - Patient Data Vitals - Most Recent: Last Vital Signs Temp 36.3 C 12/20/19 08:46 Pulse 65 12/20/19 08:46 Resp 15 12/20/19 08:46 BP 126/61 12/20/19 08:46 Pulse Ox 95 12/20/19 08:46 Weight - Most Recent: 93.485 kg I&O - Last 24 Hours: Intake & Output 12/19/19 12/20/19 12/20/19 22:59 06:59 14:59 Intake Total 50 850 Output Total 1050 Balance 50 -200 Lab Results Last 24 Hours: Laboratory Results - last 24 hr 12/19/19 12/20/19 12/20/19 Range/Units 20:38 06:00 06:00 WBC 8.33 (4.0-11.0) K/uL RBC 4.01 L (4.30-5.90) M/uL Hgb 11.6 L (12.0-16.0) g/dL Hct 37.3 (36.0-46.0) % MCV 93.0 (80.0-98.0) fL MCH 28.9 (27.0-32.0) pg MCHC 31.1 (31.0-37.0) g/dL RDW Std Deviation 49.7 (28.0-62.0) fl RDW Coeff of Gaurav 15 (11.0-15.0) % Plt Count 309 (150-400) K/uL MPV 8.80 (7.40-12.00) fL Neut % (Auto) 53.9 (48.0-80.0) % Lymph % (Auto) 35.9 (16.0-40.0) % [place] % (Auto) 6.8 (0.0-15.0) % Eos % (Auto) 3.0 (0.0-7.0) % Baso % (Auto) 0.4 (0.0-1.5) % Neut # (Auto) 4.5 (1.4-5.7) K/uL Lymph # (Auto) 3.0 H (0.6-2.4) K/uL [place] # (Auto) 0.6 (0.0-0.8) K/uL Eos # (Auto) 0.3 (0.0-0.7) K/uL Baso # (Auto) 0.0 (0.0-0.1) K/uL Sodium 141 (136-145) mmol/L Potassium 4.0 (3.5-5.1) mmol/L Chloride 107 (98-107) mmol/L Carbon Dioxide 23.6 (21.0-32.0) mmol/L BUN 17 (7.0-18.0) mg/dL Creatinine 1.0 (0.6-1.0) mg/dL Est Cr Clr Drug Dosing 46.72 mL/min Estimated GFR (MDRD) 56.4 ml/min Glucose 96 (74-106) mg/dL Calcium 8.6 (8.5-10.1) mg/dL Vancomycin Trough 26.3 H (5.0-10.0) ug/mL Kavon Results Last 24 Hours: Microbiology 12/17/19 20:00 Wound Culture - Preliminary Face - Cheek, Left NO GROWTH AFTER 1 DAY Med Orders - Current: Current Medications Acetaminophen (Tylenol) 650 mg PO Q4H PRN PRN Reason: Pain (Mild 1-3)/fever Gabapentin (Neurontin) 600 mg PO BEDTIME [facility] Last Admin: 12/19/19 20:41 Dose: 600 mg Documented by: Piperacillin Sod/Tazobactam (Sod 3.375 gm/ Sodium Chloride) 50 mls @ 100 mls/hr IV Q6H [facility] Last Admin: 12/20/19 08:41 Dose: 100 mls/hr Documented by: Vancomycin HCl 1.5 gm/ Premix 300 mls @ 300 mls/hr IV Q24H [facility] Last Admin: 12/20/19 06:00 Dose: 300 mls/hr Documented by: Ibuprofen (Motrin) 400 mg PO Q6H PRN PRN Reason: Pain (mild 1-3) Oxycodone HCl (Oxycodone) 5 mg PO Q4H PRN PRN Reason: Pain (moderate 4-6) Pantoprazole Sodium (Protonix) 40 mg PO DAILY [facility] Last Admin: 12/20/19 08:45 Dose: 40 mg Documented by: Propranolol HCl (Inderal) 40 mg PO BID [facility] Last Admin: 12/20/19 08:45 Dose: 40 mg Documented by: Rosuvastatin Calcium (Crestor) 10 mg PO BEDTIME [facility] Last Admin: 12/19/19 20:41 Dose: 10 mg Documented by: Sodium Chloride (Saline Flush) 10 ml FLUSH ASDIRECTED PRN PRN Reason: Keep Vein Open Last Admin: 12/17/19 18:22 Dose: 10 ml Documented by: Sodium Chloride (Saline Flush) 2.5 ml FLUSH ASDIRECTED PRN PRN Reason: Keep Vein Open Last Admin: 12/17/19 18:22 Dose: 2.5 ml Documented by: Vancomycin HCl (Pharmacy To Dose - Vancomycin) 1 dose .XX ASDIRECTED [facility] Discontinued Medications Vancomycin HCl 1.5 gm/ Premix 300 mls @ 300 mls/hr IV ONETIME ONE Stop: 12/17/19 19:51 Last Admin: 12/17/19 21:49 Dose: 200 mls/hr Documented by: Piperacillin Sod/Tazobactam (Sod 3.375 gm/ Sodium Chloride) 50 mls @ 100 mls/hr IV ONETIME ONE Stop: 12/17/19 20:20 Last Admin: 12/17/19 21:21 Dose: 100 mls/hr Documented by: Vancomycin HCl 1.5 gm/ Sodium (Chloride) 500 mls @ 333.333 mls/hr IV Q12H [facility] Vancomycin HCl 1.5 gm/ Premix 300 mls @ 300 mls/hr IV Q12H [facility] Last Admin: 12/19/19 22:12 Dose: Not Given Documented by: Iopamidol (Isovue-370 (76%)) 80 ml IVPUSH ONETIME STA Stop: 12/17/19 19:16 Last Admin: 12/17/19 19:15 Dose: 80 ml Documented by: - Exam General: Alert, Oriented HEENT: Other (induration and erythema of cellulitis and left jaw angle has improved, about 3-4 cm area of erythem and induration that is still swelling about 1cm in thickness) Neck: Supple Lungs: Clear to Auscultation, Normal Respiratory Effort Cardiovascular: Regular Rate, Regular Rhythm GI/Abdominal Exam: Soft, Non-Tender Sepsis Event Note - Evaluation Sepsis Screening Result: No Definite Risk - Focused Exam Vital Signs: Vital Signs Temp Pulse Resp BP Pulse Ox 12/20/19 08:46 36.3 C 65 15 126/61 95 12/20/19 02:43 36.6 C 66 16 93/40 L 96 - Problem List Review Problem List Initiated/Reviewed/Updated: Yes - My Orders Last 24 Hours: My Active Orders 12/20/19 07:00 VANCOmycin/Water for INJ (PEG) [VANCOmycin 1.5 GM/300 ML Premix] 1.5 gm Premix Bag 1 bag IV Q24H - Plan Plan:: 49 yo female admitted for parotiditis that failed outpatient management. We will continue Vancomycin and Zosyn.
[2019-12-20] MEDS: Gabapentin 300 MG Cap PO SCH (20:38)
[2019-12-20] MEDS: Rosuvastatin 10 MG Tab PO SCH (20:38)
[2019-12-21] MEDS: Piperacillin/Tazobactam 3.375 GM in Sodium Chloride 0.9% 50 ML IV SCH ×3 (02:47→14:47)
[2019-12-21 07:02] LABS: CARBON DIOXIDE,CO2 25.9 mmol/L (21.0-32.0); POTASSIUM,K 4.3 mmol/L (3.5-5.1)
[2019-12-21] MEDS: Propranolol 20 MG Tab PO SCH ×2 (08:02→21:02)
[2019-12-21] MEDS: Pantoprazole 40 MG Tab.CR PO SCH (08:02)
--- NOTE | 2019-12-21 11:33 | PCM.DCSUM1 ---
Discharge Summary - Discharge Data Discharge Date: 12/21/19 Discharge Disposition: Home, Self-Care 01 Condition: Good - Referral to Home Health Primary Care Physician: PCP None - Patient Instructions Diet: Heart Healthy Diet Notify Provider of: Fever, Increased Pain, Swelling and Redness, Nausea and/or Vomiting - Discharge Plan *PRESCRIPTION DRUG MONITORING PROGRAM REVIEWED*: No *COPY OF PRESCRIPTION DRUG MONITORING REPORT IN PATIENT RIMMA: No Prescriptions/Med Rec: Ciprofloxacin [Ciprofloxacin HCl] 500 mg PO BID 7 Days #14 tab clindamycin HCL [Clindamycin HCl] 150 mg PO TID 7 Days #63 capsule Home Medications: Home Meds Gabapentin [Neurontin] 600 mg PO BEDTIME 12/17/19 [History] Propranolol [Inderal] 40 mg PO BID 12/17/19 [History] Rosuvastatin [Crestor] 10 mg PO BEDTIME 12/17/19 [History] Acetaminophen [Tylenol] 650 mg PO Q4H PRN tablet 12/21/19 [Rx] Ciprofloxacin [Ciprofloxacin HCl] 500 mg PO BID 7 Days #14 tab 12/21/19 [Rx] clindamycin HCL [Clindamycin HCl] 150 mg PO TID 7 Days #63 capsule 12/21/19 [Rx] Patient Handouts: Parotitis, [id number] Referrals: Baldemar Can MD [Ordering Only Provider] - 12/31/19 8:00 am (Please arrive 15 minutes early with your identification, insurance card and your own facemask.) Poornima Norman MD [Resident] - 12/24/19 2:30 pm (Please arrive 15 minutes early with your insurance cards, identification, and your own facemask.) - Discharge Summary/Plan Comment DC Time >30 min.: No - Patient Data Vitals - Most Recent: Last Vital Signs Temp 97.5 F 12/21/19 07:41 Pulse 64 12/21/19 07:41 Resp 16 12/21/19 07:41 BP 129/68 12/21/19 07:41 Pulse Ox 97 12/21/19 07:41 Weight - Most Recent: 93.485 kg I&O - Last 24 hours: Intake & Output 12/20/19 12/21/19 12/21/19 22:59 06:59 14:59 Intake Total 950 450 350 Output Total 650 1300 Balance 300 -850 350 Lab Results - Last 24 hrs: Laboratory Results - last 24 hr 12/21/19 12/21/19 12/21/19 Range/Units 06:30 06:30 06:30 WBC 8.68 (4.0-11.0) K/uL RBC 4.11 L (4.30-5.90) M/uL Hgb 11.8 L (12.0-16.0) g/dL Hct 38.2 (36.0-46.0) % MCV 92.9 (80.0-98.0) fL MCH 28.7 (27.0-32.0) pg MCHC 30.9 L (31.0-37.0) g/dL RDW Std Deviation 49.8 (28.0-62.0) fl RDW Coeff of Gaurav 15 (11.0-15.0) % Plt Count 304 (150-400) K/uL MPV 8.50 (7.40-12.00) fL Neut % (Auto) 56.9 (48.0-80.0) % Lymph % (Auto) 33.3 (16.0-40.0) % [place] % (Auto) 6.7 (0.0-15.0) % Eos % (Auto) 2.8 (0.0-7.0) % Baso % (Auto) 0.3 (0.0-1.5) % Neut # (Auto) 4.9 (1.4-5.7) K/uL Lymph # (Auto) 2.9 H (0.6-2.4) K/uL [place] # (Auto) 0.6 (0.0-0.8) K/uL Eos # (Auto) 0.2 (0.0-0.7) K/uL Baso # (Auto) 0.0 (0.0-0.1) K/uL Sodium 142 (136-145) mmol/L Potassium 4.3 (3.5-5.1) mmol/L Chloride 107 (98-107) mmol/L Carbon Dioxide 25.9 (21.0-32.0) mmol/L BUN 17 (7.0-18.0) mg/dL Creatinine 1.0 (0.6-1.0) mg/dL Est Cr Clr Drug Dosing 46.72 mL/min Estimated GFR (MDRD) 56.4 ml/min Glucose 100 (74-106) mg/dL Calcium 8.9 (8.5-10.1) mg/dL Vancomycin Trough 9.7 (5.0-10.0) ug/mL KEVIN Results - Last 24 hrs: Microbiology 12/17/19 20:00 Wound Culture - Final Face - Cheek, Left Skin Negrita Med Orders - Current: Current Medications Acetaminophen (Tylenol) 650 mg PO Q4H PRN PRN Reason: Pain (Mild 1-3)/fever Gabapentin (Neurontin) 600 mg PO BEDTIME [facility] Last Admin: 12/20/19 20:38 Dose: 600 mg Documented by: Piperacillin Sod/Tazobactam (Sod 3.375 gm/ Sodium Chloride) 50 mls @ 100 mls/hr IV Q6H [facility] Last Admin: 12/21/19 09:09 Dose: 100 mls/hr Documented by: Vancomycin HCl 1.5 gm/ Premix 300 mls @ 300 mls/hr IV Q24H [facility] Last Admin: 12/21/19 07:57 Dose: 300 mls/hr Documented by: Ibuprofen (Motrin) 400 mg PO Q6H PRN PRN Reason: Pain (mild 1-3) Oxycodone HCl (Oxycodone) 5 mg PO Q4H PRN PRN Reason: Pain (moderate 4-6) Pantoprazole Sodium (Protonix) 40 mg PO DAILY [facility] Last Admin: 12/21/19 08:02 Dose: 40 mg Documented by: Propranolol HCl (Inderal) 40 mg PO BID [facility] Last Admin: 12/21/19 08:02 Dose: 40 mg Documented by: Rosuvastatin Calcium (Crestor) 10 mg PO BEDTIME [facility] Last Admin: 12/20/19 20:38 Dose: 10 mg Documented by: Sodium Chloride (Saline Flush) 10 ml FLUSH ASDIRECTED PRN PRN Reason: Keep Vein Open Last Admin: 12/17/19 18:22 Dose: 10 ml Documented by: Sodium Chloride (Saline Flush) 2.5 ml FLUSH ASDIRECTED PRN PRN Reason: Keep Vein Open Last Admin: 12/17/19 18:22 Dose: 2.5 ml Documented by: Vancomycin HCl (Pharmacy To Dose - Vancomycin) 1 dose .XX ASDIRECTED [facility] Discontinued Medications Vancomycin HCl 1.5 gm/ Premix 300 mls @ 300 mls/hr IV ONETIME ONE Stop: 12/17/19 19:51 Last Admin: 12/17/19 21:49 Dose: 200 mls/hr Documented by: Piperacillin Sod/Tazobactam (Sod 3.375 gm/ Sodium Chloride) 50 mls @ 100 mls/hr IV ONETIME ONE Stop: 12/17/19 20:20 Last Admin: 12/17/19 21:21 Dose: 100 mls/hr Documented by: Vancomycin HCl 1.5 gm/ Sodium (Chloride) 500 mls @ 333.333 mls/hr IV Q12H [facility] Vancomycin HCl 1.5 gm/ Premix 300 mls @ 300 mls/hr IV Q12H [facility] Last Admin: 12/19/19 22:12 Dose: Not Given Documented by: Iopamidol ([id number] (76%)) 80 ml IVPUSH ONETIME STA Stop: 12/17/19 19:16 Last Admin: 12/17/19 19:15 Dose: 80 ml Documented by:
--- NOTE | 2019-12-21 11:35 | US ---
Left neck ultrasound: Multiple real-time images were obtained of the left neck. Comparison: Previous ultrasound study of 12/18/19. Hypoechoic areas are identified within the left presumably parotid in location. Findings have the appearance of focal cellulitis. Findings are increasing in prominence from prior study. No definite abscess is seen although current findings with the patient at risk for development of abscess. Impression: 1. Findings felt compatible with worsening cellulitis from prior study. 2. Current findings with the patient at risk for abscess and continued close clinical follow-up is recommended. Diagnostic code #3 This report was dictated in MDT
[2019-12-21] MEDS ORDERED: Iopamidol 755 Mg/ML 100 ML Bottle IVPUSH STA (14:57)
--- NOTE | 2019-12-21 15:39 | CT ---
Indication: Left parotid abscess Technique: Contrast enhanced axial CT imaging through the neck. 75 mL Isovue 370 contrast agent was administered intravenously. Sagittal and coronal reconstructions are provided. Comparison: CT soft tissue neck with contrast 12/17/2019 Findings: There is an irregular thick-walled fluid collection in the superficial lobe of the left parotid gland which measures 2.7 x 2.3 x 2.6 cm, compatible with abscess. Associated parotid edema is decreased from prior. There is persistent adjacent subcutaneous fat stranding and thickening of the overlying skin as well as the adjacent platysma, consistent with cellulitis. The right parotid gland and both submandibular glands are normal. No significant lymphadenopathy is demonstrated in the neck. There is normal contour of the pharyngeal mucosa. There is no parapharyngeal or retropharyngeal edema. Streak artifact from dental amalgam partially limits visualization of the oral cavity. No abnormality is demonstrated in the visualized oral cavity, tongue, and floor of mouth. No abnormality seen with the vice president marketing & development spaces. The thyroid gland enhances homogeneously. The visualized paranasal sinuses and mastoid air cells are aerated. No significant abnormality is demonstrated within the visualized orbits and intracranial compartment. Atherosclerotic disease is noted of the left carotid bifurcation, without significant stenosis. The internal jugular veins are patent. The included lung apices are clear. Degenerative disc disease is noted in the cervical spine at C5-6 and C6-7 with mild spinal stenosis and bilateral neural foramina stenosis at both levels. Impression: 1. Interval development of an irregular thick-walled fluid collection in the inferior aspect of the superficial lobe of the left parotid gland measuring up to 2.7 cm, consistent with abscess. 2. Persistent but decreased inflammatory changes involving the left parotid gland consistent with parotitis. 3. Persistent adjacent subcutaneous fat stranding and thickening of the skin and platysma, consistent with cellulitis. Please note that all CT scans at this facility use dose modulation, iterative reconstruction, and/or weight-based dosing when appropriate to reduce radiation dose to as low as reasonably achievable. Dictated by Marlyn Pappas MD @ Dec 21 2019 3:09PM (Electronically Signed)
--- NOTE | 2019-12-21 18:11 | PCM.PN ---
- General Info Date of Service: 12/21/19 Subjective Update: Bedside: no acute complaints; mentions swelling is feeling better Functional Status: Reports: Pain Controlled - Review of Systems General: Reports: No Symptoms HEENT: Reports: No Symptoms Pulmonary: Reports: No Symptoms Cardiovascular: Reports: No Symptoms Gastrointestinal: Reports: No Symptoms Genitourinary: Reports: No Symptoms Musculoskeletal: Reports: No Symptoms Skin: Reports: No Symptoms Neurological: Reports: No Symptoms Psychiatric: Reports: No Symptoms - Patient Data Vitals - Most Recent: Last Vital Signs Temp 98.1 F 12/21/19 16:00 Pulse 68 12/21/19 16:00 Resp 18 12/21/19 16:00 BP 136/59 L 12/21/19 16:00 Pulse Ox 98 12/21/19 16:00 Weight - Most Recent: 93.485 kg I&O - Last 24 Hours: Intake & Output 12/21/19 12/21/19 12/21/19 06:59 14:59 22:59 Intake Total 450 350 690 Output Total 1300 900 Balance -850 350 -210 Lab Results Last 24 Hours: Laboratory Results - last 24 hr 12/21/19 12/21/19 12/21/19 Range/Units 06:30 06:30 06:30 WBC 8.68 (4.0-11.0) K/uL RBC 4.11 L (4.30-5.90) M/uL Hgb 11.8 L (12.0-16.0) g/dL Hct 38.2 (36.0-46.0) % MCV 92.9 (80.0-98.0) fL MCH 28.7 (27.0-32.0) pg MCHC 30.9 L (31.0-37.0) g/dL RDW Std Deviation 49.8 (28.0-62.0) fl RDW Coeff of Gaurav 15 (11.0-15.0) % Plt Count 304 (150-400) K/uL MPV 8.50 (7.40-12.00) fL Neut % (Auto) 56.9 (48.0-80.0) % Lymph % (Auto) 33.3 (16.0-40.0) % [place] % (Auto) 6.7 (0.0-15.0) % Eos % (Auto) 2.8 (0.0-7.0) % Baso % (Auto) 0.3 (0.0-1.5) % Neut # (Auto) 4.9 (1.4-5.7) K/uL Lymph # (Auto) 2.9 H (0.6-2.4) K/uL [place] # (Auto) 0.6 (0.0-0.8) K/uL Eos # (Auto) 0.2 (0.0-0.7) K/uL Baso # (Auto) 0.0 (0.0-0.1) K/uL Sodium 142 (136-145) mmol/L Potassium 4.3 (3.5-5.1) mmol/L Chloride 107 (98-107) mmol/L Carbon Dioxide 25.9 (21.0-32.0) mmol/L BUN 17 (7.0-18.0) mg/dL Creatinine 1.0 (0.6-1.0) mg/dL Est Cr Clr Drug Dosing 46.72 mL/min Estimated GFR (MDRD) 56.4 ml/min Glucose 100 (74-106) mg/dL Calcium 8.9 (8.5-10.1) mg/dL Vancomycin Trough 9.7 (5.0-10.0) ug/mL Med Orders - Current: Current Medications Acetaminophen (Tylenol) 650 mg PO Q4H PRN PRN Reason: Pain (Mild 1-3)/fever Dexamethasone (Dexamethasone) 10 mg IVPUSH Q8H [facility] Gabapentin (Neurontin) 600 mg PO BEDTIME [facility] Last Admin: 12/20/19 20:38 Dose: 600 mg Documented by: Ampicillin Sodium/Sulbactam (Sodium 3 gm/ Sodium Chloride) 100 mls @ 200 mls/hr IV Q6H [facility] Ibuprofen (Motrin) 400 mg PO Q6H PRN PRN Reason: Pain (mild 1-3) Oxycodone HCl (Oxycodone) 5 mg PO Q4H PRN PRN Reason: Pain (moderate 4-6) Pantoprazole Sodium (Protonix) 40 mg PO DAILY [facility] Last Admin: 12/21/19 08:02 Dose: 40 mg Documented by: Propranolol HCl (Inderal) 40 mg PO BID [facility] Last Admin: 12/21/19 08:02 Dose: 40 mg Documented by: Rosuvastatin Calcium (Crestor) 10 mg PO BEDTIME [facility] Last Admin: 12/20/19 20:38 Dose: 10 mg Documented by: Sodium Chloride (Saline Flush) 10 ml FLUSH ASDIRECTED PRN PRN Reason: Keep Vein Open Last Admin: 12/17/19 18:22 Dose: 10 ml Documented by: Sodium Chloride (Saline Flush) 2.5 ml FLUSH ASDIRECTED PRN PRN Reason: Keep Vein Open Last Admin: 12/17/19 18:22 Dose: 2.5 ml Documented by: Discontinued Medications Vancomycin HCl 1.5 gm/ Premix 300 mls @ 300 mls/hr IV ONETIME ONE Stop: 12/17/19 19:51 Last Admin: 12/17/19 21:49 Dose: 200 mls/hr Documented by: Piperacillin Sod/Tazobactam (Sod 3.375 gm/ Sodium Chloride) 50 mls @ 100 mls/hr IV ONETIME ONE Stop: 12/17/19 20:20 Last Admin: 12/17/19 21:21 Dose: 100 mls/hr Documented by: Piperacillin Sod/Tazobactam (Sod 3.375 gm/ Sodium Chloride) 50 mls @ 100 mls/hr IV Q6H [facility] Last Admin: 12/21/19 14:47 Dose: 100 mls/hr Documented by: Vancomycin HCl 1.5 gm/ Sodium (Chloride) 500 mls @ 333.333 mls/hr IV Q12H [facility] Vancomycin HCl 1.5 gm/ Premix 300 mls @ 300 mls/hr IV Q12H [facility] Last Admin: 12/19/19 22:12 Dose: Not Given Documented by: Vancomycin HCl 1.5 gm/ Premix 300 mls @ 300 mls/hr IV Q24H [facility] Last Admin: 12/21/19 07:57 Dose: 300 mls/hr Documented by: Iopamidol (Isovue-370 (76%)) 80 ml IVPUSH ONETIME STA Stop: 12/17/19 19:16 Last Admin: 12/17/19 19:15 Dose: 80 ml Documented by: Iopamidol (Isovue-370 (76%)) 75 ml IVPUSH ONETIME STA Stop: 12/21/19 14:58 Last Admin: 12/21/19 14:58 Dose: 75 ml Documented by: Vancomycin HCl (Pharmacy To Dose - Vancomycin) 1 dose .XX ASDIRECTED [facility] - Exam Quality Assessment: No: Supplemental Oxygen General: Alert, Oriented HEENT: EOMI, Other (left parotid gland induartion unchanged from yesterday; surrounding erythmea imprved ; no drainge noted this AM ) Neck: Supple Lungs: Clear to Auscultation Cardiovascular: Regular Rate, Regular Rhythm GI/Abdominal Exam: Soft, Non-Tender Extremities: Normal Inspection Wound/Incisions: Other (minimal drainge ) Neurological: No New Focal Deficit Psy/Mental Status: Alert, Normal Affect Sepsis Event Note - Evaluation Sepsis Screening Result: No Definite Risk - Focused Exam Vital Signs: Vital Signs Temp Pulse Resp BP Pulse Ox 12/21/19 16:00 98.1 F 68 18 136/59 L 98 12/21/19 12:00 97.9 F 57 L 16 131/50 L 97 12/21/19 07:41 97.5 F 64 16 129/68 97 - Problem List Review Problem List Initiated/Reviewed/Updated: Yes - My Orders Last 24 Hours: My Active Orders 12/21/19 18:15 Ampicillin/Sulbactam Na [Unasyn] 3 gm Sodium Chloride 0.9% [Normal Saline] 100 ml IV Q6H dexAMETHasone [Dexamethasone] 10 mg IVPUSH Q8H - Plan Plan:: 49 yo female admitted for parotiditis that failed outpatient management. Repeat U/S showed worsening cellulitis CT w. contrast suggested small abscess formation Discussed case with ENT of [facility]. mentioned risks benefits of drainage; recommended switching IV abx to Unasyn and adding on Decadron 10 mg q8hrs , holding for 24 hours and reassessing. Also spoke to ENT of [facility]; recommended similar actions; can drain if not responding w. IR intervention; since trauma to facial nerve is a risk factor Recommended adding on secretagogues as well
[2019-12-21] MEDS: Dexamethasone 10 MG/ML SDV IVPUSH SCH (18:28)
[2019-12-21] MEDS: Ampicillin/Sulbactam Na 3 GM in Sodium Chloride 0.9% 100 ML IV SCH (18:35)
[2019-12-21] MEDS: Rosuvastatin 10 MG Tab PO SCH (21:02)
[2019-12-21] MEDS: Gabapentin 300 MG Cap PO SCH (21:02)
[2019-12-22] MEDS: Ampicillin/Sulbactam Na 3 GM in Sodium Chloride 0.9% 100 ML IV SCH ×4 (00:11→18:06)
[2019-12-22] MEDS: Dexamethasone 10 MG/ML SDV IVPUSH SCH ×3 (02:58→18:06)
[2019-12-22] MEDS ORDERED: Sodium Chloride 0.9% 100 ML ONE (05:50)
[2019-12-22 05:59] LABS: BLOOD UREA NITROGEN,BUN 17 mg/dL (7.0-18.0); CARBON DIOXIDE,CO2 24.8 mmol/L (21.0-32.0); CHLORIDE,CL 106 mmol/L (98-107); GLUCOSE RANDOM 170 mg/dL (74-106); POTASSIUM,K 4.4 mmol/L (3.5-5.1); SODIUM,NA 140 mmol/L (136-145)
[2019-12-22] MEDS: Propranolol 20 MG Tab PO SCH ×2 (09:34→21:12)
[2019-12-22] MEDS: Pantoprazole 40 MG Tab.CR PO SCH (09:34)
--- NOTE | 2019-12-22 11:35 | PCM.PN ---
- General Info Date of Service: 12/22/19 Subjective Update: Bedside: denies any acute concerns; mentions possibly swelling improved but is not sure Functional Status: Reports: Pain Controlled - Review of Systems General: Reports: No Symptoms HEENT: Reports: No Symptoms Pulmonary: Reports: No Symptoms Cardiovascular: Reports: No Symptoms Gastrointestinal: Reports: No Symptoms Genitourinary: Reports: No Symptoms Musculoskeletal: Reports: No Symptoms Skin: Reports: No Symptoms Neurological: Reports: No Symptoms - Patient Data Vitals - Most Recent: Last Vital Signs Temp 97.3 F 12/22/19 07:10 Pulse 71 12/22/19 07:10 Resp 16 12/22/19 07:10 BP 130/47 L 12/22/19 07:10 Pulse Ox 96 12/22/19 07:10 Weight - Most Recent: 93.485 kg I&O - Last 24 Hours: Intake & Output 12/21/19 12/22/19 12/22/19 22:59 06:59 14:59 Intake Total 790 700 Output Total 900 950 Balance -110 -250 Lab Results Last 24 Hours: Laboratory Results - last 24 hr 12/22/19 12/22/19 Range/Units 05:03 05:03 WBC 12.20 H (4.0-11.0) K/uL RBC 4.41 (4.30-5.90) M/uL Hgb 12.4 (12.0-16.0) g/dL Hct 40.2 (36.0-46.0) % MCV 91.2 (80.0-98.0) fL MCH 28.1 (27.0-32.0) pg MCHC 30.8 L (31.0-37.0) g/dL RDW Std Deviation 49.9 (28.0-62.0) fl RDW Coeff of Gaurav 15 (11.0-15.0) % Plt Count 339 (150-400) K/uL MPV 8.60 (7.40-12.00) fL Neut % (Auto) 82.6 H (48.0-80.0) % Lymph % (Auto) 16.8 (16.0-40.0) % [place] % (Auto) 0.5 (0.0-15.0) % Eos % (Auto) 0.0 (0.0-7.0) % Baso % (Auto) 0.1 (0.0-1.5) % Neut # (Auto) 10.1 H (1.4-5.7) K/uL Lymph # (Auto) 2.1 (0.6-2.4) K/uL [place] # (Auto) 0.1 (0.0-0.8) K/uL Eos # (Auto) 0.0 (0.0-0.7) K/uL Baso # (Auto) 0.0 (0.0-0.1) K/uL Nucleated RBC % 0.0 /100WBC Nucleated RBCs # 0 K/uL Sodium 140 (136-145) mmol/L Potassium 4.4 (3.5-5.1) mmol/L Chloride 106 (98-107) mmol/L Carbon Dioxide 24.8 (21.0-32.0) mmol/L BUN 17 (7.0-18.0) mg/dL Creatinine 0.9 (0.6-1.0) mg/dL Est Cr Clr Drug Dosing 51.92 mL/min Estimated GFR (MDRD) > 60.0 ml/min Glucose 170 H (74-106) mg/dL Calcium 9.1 (8.5-10.1) mg/dL Total Bilirubin 0.2 (0.2-1.0) mg/dL AST 18 (15-37) IU/L ALT 34 (14-63) IU/L Alkaline Phosphatase 73 (46-116) U/L Total Protein 7.8 (6.4-8.2) g/dL Albumin 3.0 L (3.4-5.0) g/dL Globulin 4.8 H (2.6-4.0) g/dL Albumin/Globulin Ratio 0.6 L (0.9-1.6) Med Orders - Current: Current Medications Acetaminophen (Tylenol) 650 mg PO Q4H PRN PRN Reason: Pain (Mild 1-3)/fever Dexamethasone (Dexamethasone) 10 mg IVPUSH Q8H [facility] Last Admin: 12/22/19 09:35 Dose: 10 mg Documented by: Gabapentin (Neurontin) 600 mg PO BEDTIME [facility] Last Admin: 12/21/19 21:02 Dose: 600 mg Documented by: Ampicillin Sodium/Sulbactam (Sodium 3 gm/ Sodium Chloride) 100 mls @ 200 mls/hr IV Q6H [facility] Last Admin: 12/22/19 06:02 Dose: 200 mls/hr Documented by: Ibuprofen (Motrin) 400 mg PO Q6H PRN PRN Reason: Pain (mild 1-3) Oxycodone HCl (Oxycodone) 5 mg PO Q4H PRN PRN Reason: Pain (moderate 4-6) Pantoprazole Sodium (Protonix) 40 mg PO DAILY [facility] Last Admin: 12/22/19 09:34 Dose: 40 mg Documented by: Propranolol HCl (Inderal) 40 mg PO BID [facility] Last Admin: 12/22/19 09:34 Dose: 40 mg Documented by: Rosuvastatin Calcium (Crestor) 10 mg PO BEDTIME [facility] Last Admin: 12/21/19 21:02 Dose: 10 mg Documented by: Sodium Chloride (Saline Flush) 10 ml FLUSH ASDIRECTED PRN PRN Reason: Keep Vein Open Last Admin: 12/17/19 18:22 Dose: 10 ml Documented by: Sodium Chloride (Saline Flush) 2.5 ml FLUSH ASDIRECTED PRN PRN Reason: Keep Vein Open Last Admin: 12/17/19 18:22 Dose: 2.5 ml Documented by: Discontinued Medications Vancomycin HCl 1.5 gm/ Premix 300 mls @ 300 mls/hr IV ONETIME ONE Stop: 12/17/19 19:51 Last Admin: 12/17/19 21:49 Dose: 200 mls/hr Documented by: Piperacillin Sod/Tazobactam (Sod 3.375 gm/ Sodium Chloride) 50 mls @ 100 mls/hr IV ONETIME ONE Stop: 12/17/19 20:20 Last Admin: 12/17/19 21:21 Dose: 100 mls/hr Documented by: Piperacillin Sod/Tazobactam (Sod 3.375 gm/ Sodium Chloride) 50 mls @ 100 mls/hr IV Q6H [facility] Last Admin: 12/21/19 14:47 Dose: 100 mls/hr Documented by: Vancomycin HCl 1.5 gm/ Sodium (Chloride) 500 mls @ 333.333 mls/hr IV Q12H [facility] Vancomycin HCl 1.5 gm/ Premix 300 mls @ 300 mls/hr IV Q12H [facility] Last Admin: 12/19/19 22:12 Dose: Not Given Documented by: Vancomycin HCl 1.5 gm/ Premix 300 mls @ 300 mls/hr IV Q24H [facility] Last Admin: 12/21/19 07:57 Dose: 300 mls/hr Documented by: Sodium Chloride (Normal Saline) Confirm Administered Dose 100 mls @ as directed .ROUTE .STK-MED ONE Stop: 12/22/19 05:51 Last Admin: 12/22/19 06:18 Dose: Not Given Documented by: Iopamidol (Isovue-370 (76%)) 80 ml IVPUSH ONETIME STA Stop: 12/17/19 19:16 Last Admin: 12/17/19 19:15 Dose: 80 ml Documented by: Iopamidol (Isovue-370 (76%)) 75 ml IVPUSH ONETIME STA Stop: 12/21/19 14:58 Last Admin: 12/21/19 14:58 Dose: 75 ml Documented by: Vancomycin HCl (Pharmacy To Dose - Vancomycin) 1 dose .XX ASDIRECTED [facility] - Exam Quality Assessment: No: Supplemental Oxygen General: Alert, Oriented, Cooperative, No Acute Distress HEENT: EOMI, Other (left parotid gland swelling: minimal reduction in induration and erythema compared to yesterday ) Neck: Supple Lungs: Clear to Auscultation, Normal Respiratory Effort Cardiovascular: Regular Rate, Regular Rhythm GI/Abdominal Exam: Soft Neurological: No New Focal Deficit Psy/Mental Status: Alert, Normal Affect, Normal Mood Sepsis Event Note - Evaluation Sepsis Screening Result: No Definite Risk - Focused Exam Vital Signs: Vital Signs Temp Pulse Resp BP Pulse Ox 12/22/19 07:10 97.3 F 71 16 130/47 L 96 12/22/19 03:02 97.0 F 72 16 120/58 L 92 L 12/22/19 00:07 97.5 F 78 17 111/54 L 97 - Problem List Review Problem List Initiated/Reviewed/Updated: Yes - My Orders Last 24 Hours: My Active Orders 12/21/19 18:00 dexAMETHasone [Dexamethasone] 10 mg IVPUSH Q8H 12/21/19 19:00 Ampicillin/Sulbactam Na [Unasyn] 3 gm Sodium Chloride 0.9% [Normal Saline] 100 ml IV Q6H 12/23/19 05:11 CBC WITH AUTO DIFF [HEME] AM COMPREHENSIVE METABOLIC PN,CMP [CHEM] AM 12/24/19 05:11 CBC WITH AUTO DIFF [HEME] AM COMPREHENSIVE METABOLIC PN,CMP [CHEM] AM - Plan Plan:: 49 yo female admitted for parotiditis that failed outpatient management. Repeat U/S showed worsening cellulitis CT w. contrast suggested small abscess formation Discussed case with ENT of [place]. mentioned risks benefits of drainage; recommended switching IV abx to Unasyn and adding on Decadron 10 mg q8hrs , holding for 24 hours and reassessing. Also spoke to ENT of [facility]; recommended similar actions; can drain if not responding w. IR intervention; since trauma to facial nerve is a risk factor Recommended adding on secretagogues as well Discussed option of transfer to [facility] for IR/ENT Referral; pt states she will try another day of IV Unasyn+ Decadron and see if resolution can be achieved; pt irais lstill need an ENT consult and an appointment will be made
[2019-12-22] MEDS: Rosuvastatin 10 MG Tab PO SCH (21:12)
[2019-12-22] MEDS: Gabapentin 300 MG Cap PO SCH (21:12)
[2019-12-23] MEDS: Dexamethasone 10 MG/ML SDV IVPUSH SCH ×2 (01:07→09:38)
[2019-12-23] MEDS: Ampicillin/Sulbactam Na 3 GM in Sodium Chloride 0.9% 100 ML IV SCH ×2 (01:10→06:10)
[2019-12-23 05:49] LABS: CARBON DIOXIDE,CO2 24.6 mmol/L (21.0-32.0); POTASSIUM,K 4.2 mmol/L (3.5-5.1)
--- NOTE | 2019-12-23 09:33 | PCM.DCSUM1 ---
Discharge Summary - Hospital Course Free Text/Narrative:: 59 yo female who presents with enlarging mass on left angle of jaw. She was given Cefdiner two days prior to admission for parotidis with no improvement. Patient has been taking ibuprofen and acetaminophen for the pain. She denies any fevers or chills. She has no difficulty swallowing. Patient reports no drainage. In the ED she had a CT scan of neck which suggested parotidis with no evidence of abscess. Hospital course: pt .was started on Vancomycin and ZOsyn; repeat U/S did show some a small abscess formation of 2x2x2 cm. Spoke to ENT of [facility] and [facility]; recommended switch abx. to Unasyn and add Decadron as well. Otherwise pt. developed serial improvements of both induration and erythema but concerns about abscess needing drainage was discussed with patient. Since stable, afebrile, and WBC count elevation only occurred with initiation of Decadron, outpatient follow up appointment was established day of discharge with ENT of [facility] [place]. Sent home , as recommended by ENT, with Augmentin and prednisone. pt .stable and plan was discussed; had initially defrred transfer day before but was keen on follow up with ENT (sent to [facility] of interventional radiology availability) pt agreed to plan and requested discharge. Discharged home in stable condition. - Discharge Data Discharge Date: 12/23/19 Discharge Disposition: Home, Self-Care 01 Condition: Good - Referral to Home Health Primary Care Physician: PCP None - Patient Instructions Diet: Heart Healthy Diet Notify Provider of: Fever, Increased Pain, Swelling and Redness, Nausea and/or Vomiting Other/Special Instructions: Take the Augmentin and Prednisone. Follow up with your ENT in [place] 2 pm today at [facility] - Discharge Plan *PRESCRIPTION DRUG MONITORING PROGRAM REVIEWED*: No *COPY OF PRESCRIPTION DRUG MONITORING REPORT IN PATIENT RIMMA: No Prescriptions/Med Rec: Amoxicillin/Clavulanate K [Augmentin 875-125 MG] 1 tab PO BID 7 Days #14 tablet predniSONE [Prednisone] 40 mg PO DAILY 5 Days #10 tablet Home Medications: Home Meds Gabapentin [Neurontin] 600 mg PO BEDTIME 12/17/19 [History] Propranolol [Inderal] 40 mg PO BID 12/17/19 [History] Rosuvastatin [Crestor] 10 mg PO BEDTIME 12/17/19 [History] Acetaminophen [Tylenol] 650 mg PO Q4H PRN tablet 12/21/19 [Rx] Amoxicillin/Clavulanate K [Augmentin 875-125 MG] 1 tab PO BID 7 Days #14 tablet 12/23/19 [Rx] predniSONE [Prednisone] 40 mg PO DAILY 5 Days #10 tablet 12/23/19 [Rx] Patient Handouts: Parotitis, [id number], Clindamycin capsules, Ciprofloxacin tablets Referrals: Baldemar Can MD [Ordering Only Provider] - 12/31/19 8:00 am (Please arrive 15 minutes early with your identification, insurance card and your own facemask.) Poornima Norman MD [Resident] - 12/24/19 2:30 pm (Please arrive 15 minutes early with your insurance cards, identification, and your own facemask.) - Discharge Summary/Plan Comment DC Time >30 min.: No - Patient Data Vitals - Most Recent: Last Vital Signs Temp 98 F 12/23/19 07:00 Pulse 61 12/23/19 07:00 Resp 14 12/23/19 07:00 BP 128/57 L 12/23/19 07:00 Pulse Ox 96 12/23/19 07:00 Weight - Most Recent: 93.485 kg I&O - Last 24 hours: Intake & Output 12/22/19 12/23/19 12/23/19 22:59 06:59 14:59 Intake Total 800 680 Output Total 550 850 Balance 250 -170 Lab Results - Last 24 hrs: Laboratory Results - last 24 hr 12/23/19 12/23/19 Range/Units 05:07 05:07 WBC 24.47 H (4.0-11.0) K/uL RBC 4.21 L (4.30-5.90) M/uL Hgb 11.9 L (12.0-16.0) g/dL Hct 38.5 (36.0-46.0) % MCV 91.4 (80.0-98.0) fL MCH 28.3 (27.0-32.0) pg MCHC 30.9 L (31.0-37.0) g/dL RDW Std Deviation 50.2 (28.0-62.0) fl RDW Coeff of Gaurav 15 (11.0-15.0) % Plt Count 349 (150-400) K/uL MPV 8.80 (7.40-12.00) fL Neut % (Auto) 88.3 H (48.0-80.0) % Lymph % (Auto) 10.0 L (16.0-40.0) % [place] % (Auto) 1.7 (0.0-15.0) % Eos % (Auto) 0.0 (0.0-7.0) % Baso % (Auto) 0.0 (0.0-1.5) % Neut # (Auto) 21.6 H (1.4-5.7) K/uL Lymph # (Auto) 2.4 (0.6-2.4) K/uL [place] # (Auto) 0.4 (0.0-0.8) K/uL Eos # (Auto) 0.0 (0.0-0.7) K/uL Baso # (Auto) 0.0 (0.0-0.1) K/uL Nucleated RBC % 0.0 /100WBC Nucleated RBCs # 0 K/uL Sodium 142 (136-145) mmol/L Potassium 4.2 (3.5-5.1) mmol/L Chloride 106 (98-107) mmol/L Carbon Dioxide 24.6 (21.0-32.0) mmol/L BUN 26 H (7.0-18.0) mg/dL Creatinine 1.0 (0.6-1.0) mg/dL Est Cr Clr Drug Dosing 46.72 mL/min Estimated GFR (MDRD) 56.4 ml/min Glucose 174 H (74-106) mg/dL Calcium 8.6 (8.5-10.1) mg/dL Total Bilirubin 0.1 L (0.2-1.0) mg/dL AST 16 (15-37) IU/L ALT 30 (14-63) IU/L Alkaline Phosphatase 65 (46-116) U/L Total Protein 7.0 (6.4-8.2) g/dL Albumin 2.8 L (3.4-5.0) g/dL Globulin 4.2 H (2.6-4.0) g/dL Albumin/Globulin Ratio 0.7 L (0.9-1.6) Med Orders - Current: Current Medications Acetaminophen (Tylenol) 650 mg PO Q4H PRN PRN Reason: Pain (Mild 1-3)/fever Dexamethasone (Dexamethasone) 10 mg IVPUSH Q8H [facility] Last Admin: 12/23/19 01:07 Dose: 10 mg Documented by: Gabapentin (Neurontin) 600 mg PO BEDTIME [facility] Last Admin: 12/22/19 21:12 Dose: 600 mg Documented by: Ampicillin Sodium/Sulbactam (Sodium 3 gm/ Sodium Chloride) 100 mls @ 200 mls/hr IV Q6H [facility] Last Admin: 12/23/19 06:10 Dose: 200 mls/hr Documented by: Ibuprofen (Motrin) 400 mg PO Q6H PRN PRN Reason: Pain (mild 1-3) Oxycodone HCl (Oxycodone) 5 mg PO Q4H PRN PRN Reason: Pain (moderate 4-6) Pantoprazole Sodium (Protonix) 40 mg PO DAILY [facility] Last Admin: 12/22/19 09:34 Dose: 40 mg Documented by: Propranolol HCl (Inderal) 40 mg PO BID [facility] Last Admin: 12/22/19 21:12 Dose: 40 mg Documented by: Rosuvastatin Calcium (Crestor) 10 mg PO BEDTIME [facility] Last Admin: 12/22/19 21:12 Dose: 10 mg Documented by: Sodium Chloride (Saline Flush) 10 ml FLUSH ASDIRECTED PRN PRN Reason: Keep Vein Open Last Admin: 12/17/19 18:22 Dose: 10 ml Documented by: Sodium Chloride (Saline Flush) 2.5 ml FLUSH ASDIRECTED PRN PRN Reason: Keep Vein Open Last Admin: 12/17/19 18:22 Dose: 2.5 ml Documented by: Discontinued Medications Vancomycin HCl 1.5 gm/ Premix 300 mls @ 300 mls/hr IV ONETIME ONE Stop: 12/17/19 19:51 Last Admin: 12/17/19 21:49 Dose: 200 mls/hr Documented by: Piperacillin Sod/Tazobactam (Sod 3.375 gm/ Sodium Chloride) 50 mls @ 100 mls/hr IV ONETIME ONE Stop: 12/17/19 20:20 Last Admin: 12/17/19 21:21 Dose: 100 mls/hr Documented by: Piperacillin Sod/Tazobactam (Sod 3.375 gm/ Sodium Chloride) 50 mls @ 100 mls/hr IV Q6H [facility] Last Admin: 12/21/19 14:47 Dose: 100 mls/hr Documented by: Vancomycin HCl 1.5 gm/ Sodium (Chloride) 500 mls @ 333.333 mls/hr IV Q12H [facility] Vancomycin HCl 1.5 gm/ Premix 300 mls @ 300 mls/hr IV Q12H [facility] Last Admin: 12/19/19 22:12 Dose: Not Given Documented by: Vancomycin HCl 1.5 gm/ Premix 300 mls @ 300 mls/hr IV Q24H [facility] Last Admin: 12/21/19 07:57 Dose: 300 mls/hr Documented by: Sodium Chloride (Normal Saline) Confirm Administered Dose 100 mls @ as directed .ROUTE .STK-MED ONE Stop: 12/22/19 05:51 Last Admin: 12/22/19 06:18 Dose: Not Given Documented by: Iopamidol (Isovue-[id number] (76%)) 80 ml IVPUSH ONETIME STA Stop: 12/17/19 19:16 Last Admin: 12/17/19 19:15 Dose: 80 ml Documented by: Iopamidol (Isovue-[id number] (76%)) 75 ml IVPUSH ONETIME STA Stop: 12/21/19 14:58 Last Admin: 12/21/19 14:58 Dose: 75 ml Documented by: Vancomycin HCl (Pharmacy To Dose - Vancomycin) 1 dose .XX ASDIRECTED [facility]
[2019-12-23] MEDS: Pantoprazole 40 MG Tab.CR PO SCH (09:38)
[2019-12-23] MEDS: Propranolol 20 MG Tab PO SCH (09:39)
== END 2019-12-23 09:45 | disposition home or self-care (01) | DRG 115 ==
LOC: MW.ED 17:18 → MW.MS 20:06
PROVIDERS: ADMIT Internal Medicine; ATTEND Internal Medicine
DX: K11.20 Sialoadenitis, unspecified (principal); L03.211 Cellulitis of face; M27.2 Inflammatory conditions of jaws; E78.00 Pure hypercholesterolemia, unspecified; E78.5 Hyperlipidemia, unspecified; R25.1 Tremor, unspecified; Z20.828 Contact with and (suspected) exposure to other viral communicable diseases; Z91.040 Latex allergy status; Z79.899 Other long term (current) drug therapy
CPT/HCPCS: 10060; 36415; 70491; 70491-26; 76536; 76536-26; 80048; 80053; 80202; 85025; 87070; 99284-25; A9270-GY; J0295; J1100; J2543; J3370; J7050; Q9967; U0002